=== PATIENT | female | born 1960 | race Caucasian/White ===

== ENCOUNTER 2016-11-06 05:06 | Emergency (ER) | payer OTHER ==
[2014-07-20 04:42] VITALS: BMI 29.0
[~2016-11-06 05:06] MED LIST: BAYER CHEWABLE81 MG PO; LOPRESSOR25 MG PO; MAXALT10 MG PO; RESTORIL15 MG; RESTORIL15 MG PO; TIROSINT88 MCG PO; XARELTO20 MG PO
[2016-11-06 05:36] LABS: BASOPHILS 0.3 % (0.0-2.0); EOSINOPHILS 4.6 % (0-7); HEMATOCRIT 37.8 % (36.0-48.0); HEMOGLOBIN 12.7 g/dL (12-16); IMMATURE GRANULOCYTES 0.2 % (0-5); LYMPHOCYTES 36.1 % (15-50); MCH 29.7 pg (26.0-34.0); MCHC 33.6 g/dL (31.0-37.0); MCV 88.5 fL (80.0-100.0); MEAN PLATELET VOLUME 9.7 fL (7.4-10.4); MONOCYTES 14.2 % (2-11); NEUTROPHILS 44.6 % (40-80); RBC 4.27 10x6/uL (4.00-5.40); RDW 14.7 % (11.5-14.5); WBC 6.3 10x3/uL (4.8-10.8)
[2016-11-06 05:39] LABS: PLATELET COUNT 221 10x3/uL (130-400)
[2016-11-06 05:51] LABS: ALBUMIN 3.5 g/dL (3.4-5.0); ALKALINE PHOSPHATASE 69 U/L (46-116); ALT (SGPT) 29 U/L (10-68); CALC OSMOLALITY 280 mosm/kg (275-300); CALCIUM 8.9 mg/dL (8.5-10.1); CARBON DIOXIDE 26.6 mmol/L (21.0-32.0); CHLORIDE - SERUM 104 mmol/L (98-107); CREATININE - SERUM 0.8 mg/dL (0.6-1.3); GLUCOSE 99 mg/dL (74-106); POTASSIUM - SERUM 3.9 mmol/L (3.5-5.1); SODIUM 139 mmol/L (136-145); UREA NITROGEN 21 mg/dL (7-18); eGFR NON AFRICAN AMERICAN 78 mL/min (90-120)
[2016-11-06 06:03] LABS: CHOL - HDL RATIO 2.8 ratio (2.3-4.1); CHOLESTEROL, TOTAL 190 mg/dL (0-200); CKMB 1.7 U/L (0.0-3.6); CREATINE KINASE 120 UL (21-215); HDL CHOLESTEROL 68 mg/dL (32-96); LDL CHOLESTEROL 114 mg/dL (0-100); LDL-HDL RATIO 1.7 ratio (1.5-3.5); TRIGLYCERIDE 40 mg/dL (30-200); TROPONIN-I < 0.017 ng/mL (0.000-0.060)
[2016-11-06 07:07] LABS: MAGNESIUM - SERUM 1.8 mg/dL (1.8-2.4); PHOSPHOROUS 3.5 mg/dL (2.5-4.9)
[2016-11-06 09:01] LABS: CREATINE KINASE 121 UL (21-215); TROPONIN-I < 0.017 ng/mL (0.000-0.060)
--- NOTE | 2016-11-12 08:46 | CN ---
PATIENT NAME:ISAK ISLAS MEDICAL RECORD: [id number] : 58 LOCATION:.ER ADMIT DATE: ACCOUNT: [id number] CONSULTING PHYSICIAN: LUIS MARTINEZ MD REFERRING PHYSICIAN: MALATHI COTTER MD DATE OF CONSULTATION: 11/06/2016 DIAGNOSES: 1. Paroxysmal atrial fibrillation. 2. Chest pain. HISTORY OF PRESENT ILLNESS: Mrs. Islas has a history of paroxysmal atrial fibrillation associated with chest pain. We did a workup on her in the office with a stress test that was negative for ischemia, we gave her p.r.n. metoprolol. She had an episode yesterday of chest pain associated with the heart rate in the 140s. She took 1 metoprolol. She then presented to the Emergency Room today, she is back in sinus rhythm today, pain free now. Her troponin is normal. EKG is with no ST-T abnormalities. PHYSICAL EXAMINATION: GENERAL APPEARANCE: Well-nourished, well-developed, appears stated age. Level of distress, comfortable. PSYCHIATRIC: Mental status, alert, normal affect. Orientation, oriented to time, place and person. EYES: Lids and conjunctiva, noninjected. No discharge, no pallor. ENT: Lips, teeth, gums, normal dentition. Oropharynx, no cyanosis, no pallor. NECK: Carotid arteries, bilateral normal upstroke, no bruits, no thrills. JUGULAR VEINS: No jugular venous pressure or distention. CERVICAL LYMPH NODES: Nontender, nonenlarged. THYROID: Not enlarged. Nontender. No nodules. LUNGS: Respiratory effort, unlabored. CHEST: Normal curvature. No thoracic deformity. No chest wall tenderness. Percussion, resonant. Auscultation, clear. No wheezes, no rales, no rhonchi. CARDIOVASCULAR: Precordial exam, nondisplaced. No heaves or pericardial thrills. Rate and rhythm, regular. Heart sounds, normal S1, normal S2. No S3, no gallop, no rub. Systolic murmur, not heard. Diastolic murmur, not heard. EXTREMITIES: No cyanosis, no edema. Peripheral pulses, full and equal in all extremities, except as noted. No bruits appreciated. ABDOMEN: Soft, nondistended. Normal aorta. No bruit. Nontender. No masses. Liver, nontender, no hepatomegaly. Spleen, nontender, no splenomegaly. MUSCULOSKELETAL: No joint tenderness. No joint swelling. No erythema. NEUROLOGICAL: Normal gait, normal strength, normal tone. SKIN: Warm and dry. REVIEW OF SYSTEMS: The patient reports easy bruising but reports no swollen glands. The patient reports no fever, no night sweats, no significant weight gain, no significant weight loss. No significant exercise tolerance. The patient reports no dry eyes, no irritation, no vision change. Patient reports no difficulty hearing and no ear pain. Patient reports no frequent nose bleeds or nose and sinus problems. Patient reports on arm pain on exertion. No shortness of breath while lying down. No history of heart murmur. Patient reports no cough, no wheezing or coughing up blood. Patient reports no abdominal pain, no vomiting. Normal appetite. No diarrhea and not vomiting blood. No nausea and no constipation. Patient reports no incontinence. No difficulty urinating. No hematuria. No increased frequency. Patient reports CONSULT REPORT [id number] JANEL,ISAK no muscle aches. No weakness, no arthralgias, no back pain. No swelling of the extremities. Patient reports no abnormal mole, no jaundice, no rashes. Reports no loss of consciousness. No weakness and no numbness. No seizures, dizziness, or headaches. The patient reports no depression, no sleep disturbance, feeling safe in a relationship and no alcohol abuse. Patient reports on fatigue. Reports no runny nose or sinus pressure. No itching, no hives, and no frequent sneezing. OVERALL IMPRESSION: Paroxysmal atrial fibrillation causing chest pain. At this time, there is no further cardiac workup or treatment is necessary. She took the metoprolol, back in rhythm, no ST-T abnormalities. Troponin is normal. We will discharge from the Emergency Room, keep her follow up as scheduled with [facility]. TRANSINT:[id number] Voice Confirmation ID: [id number] DOCUMENT ID: [id number] LUIS MARTINEZ MD at 0846 CC: [id number] DICTATION DATE: 11/06/16913 RETAIL PHARMACIST: 11/06/16 1138 DEP ER 11/06/16 [facility] [address] [place] [address]
== END 2016-11-06 09:53 | disposition home or self-care (01) ==
LOC: D.ER 05:06
PROVIDERS: Emergency Medicine; Surgery
DX: I20.0 Unstable angina (principal)

== ENCOUNTER → 2020-01-17 12:51 | Outpatient (CLI) | payer OTHER ==
[2014-07-20 04:42] VITALS: BMI 29.0
--- NOTE | 2020-01-21 10:54 | ST ---
PATIENT:ISAK ISLAS MEDICAL RECORD: [id number] SEX: F LOCATION:[facility] ORDER #: ADMISSION DATE: 01/17/20 AGE OF PATIENT: 59 REFERRING PHYSICIAN: INTERPRETING PHYSICIAN: MARISA BARRON MD DATE OF SERVICE: 02/16/2020 PROCEDURE: Treadmill stress test. TECHNIQUE: Bassline ECG is normal. Exercised for 8 minutes on Wander protocol. Maximum heart rate 146 beats per minute, greater than 85% maximum predicted. No ECG changes for ischemia. No symptoms of ischemia. No arrhythmias during exercise. Mild hypotension reported post-exercise. IMPRESSION: Negative treadmill stress test. TRANSINT:[id number] Voice Confirmation ID: [id number] DOCUMENT ID: [id number] MARISA BARRON MD at 1054 CC: [id number] DICTATION DATE: 01/17/20 1546 SERVICE PROVIDER: 01/18/20 0143 DEP CLI 01/17/20 [id number] [place] [address]
== END | disposition home or self-care (01) ==
LOC: D.HCCARDIO 12:51
PROVIDERS: ATTEND Internal Medicine Interventional Cardiology
DX: I48.91 Unspecified atrial fibrillation (principal)